=== PATIENT | female | born 1990 | race Caucasian/White ===

== ENCOUNTER 2020-03-23 01:12 | Emergency (ER) | payer OTHER ==
[~2020-03-23] VITALS: Ht 144.8 cm; Wt 59.0 kg
[2020-03-23 01:29] VITALS: Ht 144.8 cm; Wt 59.0 kg
[2020-03-23 02:14] LABS: PLATELET COUNT 306 x10^3mcL (179-408); RED CELL DISTRIBUTION WIDTH 12.6 % (12.3-17.7)
[2020-03-23 02:24] LABS: CALCIUM 9.1 mg/dL (8.5-10.1); CARBON DIOXIDE 25.3 mmol/L (21-32); CHLORIDE SERUM 99 mmol/L (98-107); CREATININE SERUM 0.8 mg/dL (0.6-1.0); GFR1 > 60 mL/min; GLUCOSE SERUM 93 mg/dL (74-106); POTASSIUM SERUM 3.8 mmol/L (3.5-5.1); SODIUM SERUM 133 mmol/L (136-145)
[2020-03-23 02:37] LABS: ALBUMIN 3.8 g/dL (3.4-5.0); ALKALINE PHOSPHATASE 102 U/L (46-116); ALT/SGPT 21 U/L (14-59); AST/SGOT 12 U/L (15-37); BILIRUBIN TOTAL 0.25 mg/dL (0.20-1.00); FREE T4 1.15 ng/dL (0.76-1.46); TOTAL PROTEIN, SERUM 7.9 g/dL (6.4-8.2)
[2020-03-23 03:14] VITALS: BP 117/83
== END 2020-03-23 03:14 | disposition home or self-care (01) ==
LOC: ED 01:12
PROVIDERS: Student in an Organized Health Care Education/Training Program
DX: F41.9 Anxiety disorder, unspecified (principal); E03.9 Hypothyroidism, unspecified; R20.2 Paresthesia of skin
CPT/HCPCS: 84439